=== PATIENT | male | born 1950 | race Caucasian/White ===

== ENCOUNTER 2020-06-08 06:30 | Day surgery (SDC) | payer MEDICARE ==
[~2020-06-08 06:30] MED LIST: Acetaminophen 325 MG Tab PO PRN; Cataract Ophth Solution EYERT ONE; Moxifloxacin 0.5% Ophth Soln 3 ML Bottle EYERT ONE; Ondansetron 4 MG/2 ML SDV IVPUSH PRN; Phenylephrine 10% Ophth Soln 5 ML Bot EYERT ONE; Phenylephrine 10% Ophth Soln 5 ML Bot EYERT PRN; Povidone-Iodine 5% Sterile Ophth Soln 30 ML Bottle EYERT ONE; Proparacaine 0.5% Ophth Soln 15 ML Bottle EYERT ONE; Sodium Chloride 0.9% 10 ML Syringe FLUSH PRN; Timolol Maleate 0.5% Ophth Soln 5 ML Bottle EYERT ONE; Tropicamide 1% Ophth Soln 15 ML Bottle EYERT ONE
[2020-06-08] MEDS ORDERED: Sodium Chloride 0.9% 10 ML Syringe IV ONE (06:31)
[2020-06-08] MEDS ORDERED: Dexamethasone 4 MG/ML SDV IV ONE (06:31)
[2020-06-08] MEDS ORDERED: Midazolam 1 MG/ML 2 ML SDV IV ONE (06:31)
[2020-06-08] MEDS ORDERED: Lidocaine 1% 30 ML SDV ONE (08:21)
[2020-06-08] MEDS ORDERED: Tetracaine HCl/PF 0.5% 4 ML Bottle EYERT ONE (08:21)
[2020-06-08] MEDS ORDERED: Povidone-Iodine 5% Sterile Ophth Soln 30 ML Bottle EYERT ONE (08:21)
[2020-06-08] MEDS ORDERED: Vancomycin 500 MG SDV EYERT ONE (08:22)
[2020-06-08] MEDS ORDERED: Diclofenac Sodium 0.1% Ophth Soln 5 ML Bottle EYERT ONE (08:22)
[2020-06-08] MEDS ORDERED: Chondroitin Sulfate/Hyaluronate Sodium Ophth Inj 0.75 ML Syringe EYERT ONE (08:22)
[2020-06-08] MEDS ORDERED: Apraclonidine 0.5% Ophth Soln 5 ML Bot EYERT ONE (08:22)
[2020-06-08] MEDS ORDERED: Balanced Salt Solution Ophth Irrig 500 ML Bottle IOCULAR ONE (08:22)
[2020-06-08] MEDS ORDERED: Phenylephrine 10% Ophth Soln 5 ML Bot EYERT ONE (08:22)
--- NOTE | 2020-06-08 12:43 | OR ---
DATE: 06/08/2020 PREOPERATIVE DIAGNOSIS: Visually significant mixed cataract, right eye. POSTOPERATIVE DIAGNOSIS: Visually significant mixed cataract, right eye. PROCEDURE: Extracapsular cataract extraction with intraocular lens implant, right eye. ANESTHESIA: Topical/local MAC. COMPLICATIONS: None. INDICATION: Mr. Parrish was seen in the clinic. He is unhappy with his vision noticing a progressive change. He has difficulty seeing words on the TV guide, difficulty driving, difficulty with both near and distance vision. Examination revealed visually significant mixed cataract. I explained options, offered cataract surgery, and I explained risks including, but not limited to infection, retinal detachment, loss of vision, need for additional surgery amongst others. We discussed the implant options. He has requested a monofocal implant. He understands that he will likely need glasses for best vision. He also has a history of amblyopia in the right eye and potentially isoametropic amblyopia. He understands that his visual potential may be limited. He voiced an understanding with respect to risks and limitations, and wished to proceed. OPERATIVE DESCRIPTION: After informed consent was obtained and the risks, benefits, and alternatives were explained, the patient was brought to the operative suite and topical anesthesia was administered. The patient was then prepped and draped in the sterile fashion and attention was placed on the right eye. A sterile lid speculum was placed into the right eye to allow operative exposure. A full-thickness paracentesis was made in the temporal portion of the operative eye. Preservative-free lidocaine 0.1 mL was injected into the anterior chamber followed by viscoelastic. A full-thickness corneal incision was then made into the anterior chamber. A bent needle cystotome was used to create a small cruz in the anterior capsule. The capsulorrhexis forceps was then used to create a 360-degree curvilinear capsulorrhexis. The nucleus was then removed using a phacoemulsification handpiece and the remaining cortical material was then removed with irrigation and aspiration handpiece. Following removal of the cortical material, the capsular bag was then inspected and noted to be free of any holes or tears. Viscoelastic was then injected into the capsular bag and the intraocular lens was inserted into the capsular bag. The viscoelastic material was then removed from both the anterior and posterior chambers and from behind the IOL. The lens and capsular bag were then reinspected. The IOL was well centered and the capsular bag intact. The wound and paracentesis sites were inspected and hydrated with balanced saline solution. Both were found to be self- sealing. The intraocular pressure was assessed digitally and found to be within normal range. A good red reflex was noted at the completion of the procedure. No complications occurred during the operation. At the completion of the procedure, Maxitrol, Voltaren, and Iopidine drops were placed into the operative eye. A sterile eye shield was placed over the operative eye and the patient was transported to the postoperative recovery area having tolerated the procedure well. Postoperative instructions were given along with a postoperative appointment. The patient was advised to call with any questions or concerns. [facility] /[id number]
[2020-06-08 14:02] VITALS: BP 150/83; PULSE 81
== END 2020-06-08 09:32 | disposition home or self-care (01) ==
LOC: DL.SDS 06:30
PROVIDERS: ATTEND Ophthalmology
DX: E11.36 Type 2 diabetes mellitus with diabetic cataract (principal); H26.8 Other specified cataract; I10 Essential (primary) hypertension; F32.9 Major depressive disorder, single episode, unspecified; F41.9 Anxiety disorder, unspecified; E78.5 Hyperlipidemia, unspecified; F17.210 Nicotine dependence, cigarettes, uncomplicated; Z88.8 Allergy status to other drugs, medicaments and biological substances; Z79.899 Other long term (current) drug therapy; Z86.73 Personal history of transient ischemic attack (TIA), and cerebral infarction without residual deficits
CPT/HCPCS: 66984; J1100; J2250; J3370; V2632; 00142

== ENCOUNTER 2020-06-15 09:08 | Day surgery (SDC) | payer MEDICARE ==
[2020-06-15] MEDS ORDERED: Midazolam 1 MG/ML 2 ML SDV IV ONE (09:09)
[2020-06-15] MEDS ORDERED: Dexamethasone 4 MG/ML SDV IV ONE (09:09)
[2020-06-15] MEDS ORDERED: Sodium Chloride 0.9% 10 ML Syringe IV ONE (09:09)
[2020-06-15] MEDS ORDERED: Acetaminophen 325 MG Tab PO PRN (09:15)
[2020-06-15] MEDS ORDERED: Phenylephrine 10% Ophth Soln 5 ML Bot EYELF ONE (09:15)
[2020-06-15] MEDS ORDERED: Tropicamide 1% Ophth Soln 15 ML Bottle EYELF ONE (09:15)
[2020-06-15] MEDS ORDERED: Sodium Chloride 0.9% 10 ML Syringe FLUSH PRN (09:15)
[2020-06-15] MEDS ORDERED: Proparacaine 0.5% Ophth Soln 15 ML Bottle EYELF ONE (09:15)
[2020-06-15] MEDS ORDERED: Moxifloxacin 0.5% Ophth Soln 3 ML Bottle EYELF ONE (09:15)
[2020-06-15] MEDS ORDERED: Povidone-Iodine 5% Sterile Ophth Soln 30 ML Bottle EYELF ONE ×2 (09:15→10:30)
[2020-06-15] MEDS ORDERED: Timolol Maleate 0.5% Ophth Soln 5 ML Bottle EYELF ONE (09:15)
[2020-06-15] MEDS ORDERED: Phenylephrine 10% Ophth Soln 5 ML Bot EYELF PRN (09:15)
[2020-06-15] MEDS ORDERED: Cataract Ophth Solution EYELF ONE (09:15)
[2020-06-15] MEDS ORDERED: Tetracaine HCl/PF 0.5% 4 ML Bottle EYELF ONE (10:29)
[2020-06-15] MEDS ORDERED: Lidocaine 1% 30 ML SDV ONE (10:29)
[2020-06-15] MEDS ORDERED: Dexamethasone/Neomycin/Polymyxin B Ophth Oint 3.5 GM Tube EYELF ONE (10:30)
[2020-06-15] MEDS ORDERED: Apraclonidine 0.5% Ophth Soln 5 ML Bot EYELF ONE (10:30)
[2020-06-15] MEDS ORDERED: Diclofenac Sodium 0.1% Ophth Soln 5 ML Bottle EYELF ONE (10:30)
[2020-06-15] MEDS ORDERED: Chondroitin Sulfate/Hyaluronate Sodium Ophth Inj 0.75 ML Syringe EYELF ONE (10:31)
[2020-06-15] MEDS ORDERED: Vancomycin 500 MG SDV EYELF ONE (10:31)
[2020-06-15] MEDS ORDERED: Balanced Salt Solution Ophth Irrig 500 ML Bottle IOCULAR ONE (10:31)
[2020-06-15 14:09] VITALS: BP 129/74; PULSE 70
--- NOTE | 2020-06-16 07:37 | OR ---
DATE: 06/15/2020 PREOPERATIVE DIAGNOSIS: Visually significant mixed cataract, left eye. POSTOPERATIVE DIAGNOSIS: Visually significant mixed cataract, left eye. PROCEDURE: Extracapsular cataract extraction with intraocular lens implant, left eye. ANESTHESIA: Topical/local MAC. COMPLICATIONS: None. INDICATION: Mr. Parrish was seen in the clinic. He has complained of a slow progressive decrease in vision. He has difficulty with both near and distance tasks. Examination revealed visually significant mixed cataract. 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 Dr. Reed was not able to improve his vision with a change in glasses. I explained options to Mr. Parrish. I have offered cataract surgery and I explained risks, including, but not limited to, infection, retinal detachment, loss of vision, need for additional surgery amongst others. We discussed implant options. He has requested a monofocal implant. He does have significant preexisting corneal astigmatism and he understands his visual potential will be limited without glasses. He also has a history of possible amblyopia and I explained that his ultimate visual potential may be limited, symptomatic. He voiced understanding and wished to proceed. OPERATIVE DESCRIPTION: After informed consent was obtained and the risks, benefits, and alternatives were explained, the patient was brought to the operative suite and topical anesthesia was administered. The patient was then prepped and draped in the sterile fashion and attention was placed on the left eye. A sterile lid speculum was placed into the left eye to allow operative exposure. A full-thickness paracentesis was made in the temporal portion of the operative eye. Preservative-free lidocaine 0.1 mL was injected into the anterior chamber followed by viscoelastic. A full-thickness corneal incision was then made into the anterior chamber. A bent needle cystotome was used to create a small cruz in the anterior capsule. The capsulorrhexis forceps was then used to create a 360-degree curvilinear capsulorrhexis. The nucleus was then removed using a phacoemulsification handpiece and the remaining cortical material was then removed with irrigation and aspiration handpiece. Following removal of the cortical material, the capsular bag was then inspected and noted to be free of any holes or tears. Viscoelastic was then injected into the capsular bag and the intraocular lens was inserted into the capsular bag. The viscoelastic material was then removed from both the anterior and posterior chambers and from behind the IOL. The lens and capsular bag were then reinspected. The IOL was well centered and the capsular bag intact. The wound and paracentesis sites were inspected and hydrated with balanced saline solution. Both were found to be self- sealing. The intraocular pressure was assessed digitally and found to be within normal range. A good red reflex was noted at the completion of the procedure. No complications occurred during the operation. At the completion of the procedure, Maxitrol, Voltaren, and Iopidine drops were placed into the operative eye. A sterile eye shield was placed over the operative eye and the patient was transported to the postoperative recovery area having tolerated the procedure well. Postoperative instructions were given along with a postoperative appointment. The patient was advised to call with any questions or concerns. [facility] /[id number]
== END 2020-06-15 11:39 | disposition home or self-care (01) ==
LOC: DL.SDS 09:08
PROVIDERS: ATTEND Ophthalmology
DX: H26.8 Other specified cataract (principal); I10 Essential (primary) hypertension; F32.9 Major depressive disorder, single episode, unspecified; F41.9 Anxiety disorder, unspecified; Z87.891 Personal history of nicotine dependence; J44.9 Chronic obstructive pulmonary disease, unspecified; Z79.899 Other long term (current) drug therapy
CPT/HCPCS: 66984; A9270; J1100; J2250; J3370; V2632; 00142

== ENCOUNTER 2020-11-10 22:31 | Emergency (ER) | payer MEDICARE, OTHER, SELFPAY ==
[2020-11-10 22:32] VITALS: BP 143/77; PULSE 95
--- NOTE | 2020-11-10 22:34 | EDM.PDOC ---
ED HPI GENERAL MEDICAL PROBLEM - General Chief Complaint: Laceration Stated Complaint: AMBULANCE Time Seen by Provider: 11/10/20 22:31 Source of Information: Reports: Patient, EMS History Limitations: Reports: No Limitations - History of Present Illness INITIAL COMMENTS - FREE TEXT/NARRATIVE: Patient is a unfortunate 70-year-old intoxicated male who presents emerged part today with complaint of head laceration. The patient reports that he drank 12- 15 beers today as he does every day however today he slipped and fell while he was walking onto his head and hit his head which caused a scalp laceration. The patient did not suffer a loss of consciousness he is alert and oriented x3 smells of EtOH and is obviously intoxicated this time but follows all commands and is cooperative and happy - Related Data Allergies Allergy/AdvReac Type Severity Reaction Status Date / Time No Known Allergies Allergy Verified 06/15/20 09:22 Home Meds: Home Meds Aspirin [Halfprin] 81 mg PO DAILY 06/06/20 [History] Citalopram [Citalopram HBr] 20 mg PO DAILY 06/06/20 [History] Ergocalciferol (Vitamin D2) [Vitamin D2] 50,000 unit PO .WEEKLY 06/06/20 [History] LORazepam [Lorazepam] 2 mg PO DAILY 06/06/20 [History] Meloxicam [Mobic] 7.5 mg PO DAILY PRN 06/06/20 [History] Terazosin [Hytrin] 2 mg PO BEDTIME 06/06/20 [History] amLODIPine [Norvasc] 5 mg PO DAILY 06/06/20 [History] traZODone 50 mg PO DAILY 06/06/20 [History] Past Medical History HEENT History: Reports: Cataract Cardiovascular History: Reports: High Cholesterol, Hypertension Respiratory History: Reports: None Gastrointestinal History: Reports: None Genitourinary History: Reports: BPH, Other (See Below) Other Genitourinary History: HX OF ED Musculoskeletal History: Reports: Fracture Other Musculoskeletal History: collar bone Neurological History: Reports: TIA Psychiatric History: Reports: Addiction, Anxiety, Depression, Other (See Below) Other Psychiatric History: HX OF ALCOHOL ABUSE Endocrine/Metabolic History: Reports: Diabetes, Type II, Vitamin D Deficiency Hematologic History: Reports: None Immunologic History: Reports: None Oncologic (Cancer) History: Reports: None Dermatologic History: Reports: None - Infectious Disease History Infectious Disease History: Reports: None - Past Surgical History Head Surgeries/Procedures: Reports: None HEENT Surgical History: Reports: None, Cataract Surgery Cardiovascular Surgical History: Reports: None Respiratory Surgical History: Reports: None GI Surgical History: Reports: None Male Surgical History: Reports: None Endocrine Surgical History: Reports: None Neurological Surgical History: Reports: None Social & Family History - Caffeine Use Caffeine Use: Reports: Coffee Caffeine Use Comment: 3 cups daily - Living Situation & Occupation Living situation: Reports: Single Occupation: Retired ED ROS GENERAL - Review of Systems Review Of Systems: See Below Constitutional: Denies: Fever, Chills Neurological: Reports: Headache ED EXAM, SKIN/RASH Exam: See Below Exam Limited By: No Limitations General Appearance: Alert, WD/WN, Mild Distress, Other (Intoxicated) Eye Exam: Bilateral Eye: PERRL, Other (Post cataract changes) Ears: Normal External Exam, Normal Canal, Hearing Grossly Normal, Normal TMs Throat/Mouth: Normal Inspection, Normal Lips, Normal Teeth, Normal Gums, Normal Oropharynx, Normal Voice, No Airway Compromise Neck: Normal Inspection, Supple, Non-Tender, Full Range of Motion Respiratory/Chest: No Respiratory Distress, Lungs Clear, Normal Breath Sounds, No Accessory Muscle Use, Chest Non-Tender Cardiovascular: Normal Peripheral Pulses, Regular Rate, Rhythm, No Edema, No Gallop, No JVD, No Murmur, No Rub GI/Abdominal: Normal Bowel Sounds, Soft, Non-Tender, No Organomegaly, No Distention, No Abnormal Bruit, No Mass Back Exam: Normal Inspection, Full Range of Motion, NT Extremities: Normal Inspection, Normal Range of Motion, Non-Tender, No Pedal Edema, Normal Capillary Refill Neurological: Alert, Oriented, CN II-XII Intact, Normal Cognition, Normal Gait, Normal Reflexes, No Motor/Sensory Deficits ED SKIN PROCEDURES - Additional/Other Procedure(s) Other (Free Text) Procedure(s): 4 cm linear scalp laceration, partial dermis thickness no active bleeding no foreign body noted, Betadine prep, local anesthesia lidocaine 1% 4 mL, wound was irrigated with NS and Betadine, wound was closed with #11 wilfred, patient tolerated procedure well, dressing by nursing Course - Vital Signs Text/Narrative:: CT head "impression: #1 no acute abnormality of the brain. #2 moderate right frontoparietal scalp hematoma/laceration near the vertex. Few foci of soft tissue emphysema near vertex. #3 mild mucoperiosteal thickening in the right and left frontal and right maxillary sinuses. Findings have increased in the left frontal sinus. #4 incidental/nonacute findings are listed in the report." Work today is reassuring, patient is intoxicated and fell head CT shows no acute findings, patient scalp laceration was repaired, patient will be discharged home follow-up outpatient with PCP or return to the emergency department for any worsening condition Last Recorded V/S: Last Vital Signs Temp 98.3 F 11/10/20 22:31 Pulse 95 11/10/20 22:31 Resp 16 11/10/20 22:31 BP 143/77 H 11/10/20 22:31 Pulse Ox 96 11/10/20 22:31 - Orders/Labs/Meds Meds: Medications Discontinued Medications Generic Name Dose Route Start Last Admin Trade Name Freq PRN Reason Stop Dose Admin Lidocaine HCl Confirm 11/10/20 22:53 Lidocaine 1% 30 Ml Sdv Administered 11/10/20 22:54 Dose 30 ml .ROUTE .STK-MED ONE Departure - Departure Time of Disposition: 23:41 Disposition: DC/Tfer W/I Hosp To Swing 61 Condition: Good Clinical Impression: ETOH abuse Scalp laceration Qualifiers: Encounter type: initial encounter Qualified Code(s): S01.01XA - Laceration without foreign body of scalp, initial encounter - Discharge Information *PRESCRIPTION DRUG MONITORING PROGRAM REVIEWED*: No *COPY OF PRESCRIPTION DRUG MONITORING REPORT IN PATIENT SALONI: No Instructions: Alcohol Use Disorder, Laceration Care, Adult Referrals: Daniela Apodaca MD [Physician] - Forms: ED Department Discharge Additional Instructions: Home, rest, keep wound clean and dry, clean wound daily apply Neosporin and bandage, no carrington or brushes, sutures out in 5 to 7 days, return to the emergency department for any worsening condition Sepsis Event Note (ED) - Focused Exam Vital Signs: Vital Signs Temp Pulse Resp BP Pulse Ox 11/10/20 22:31 98.3 F 95 16 143/77 H 96
[2020-11-10] MEDS ORDERED: Lidocaine 1% 30 ML SDV ONE (22:53)
--- NOTE | 2020-11-10 23:32 | CT ---
PROCEDURE INFORMATION: Exam: CT Head Without Contrast Exam date and time: 11/10/2020 10:51 PM Age: 70 years old Clinical indication: Injury or trauma; Fall; Blunt trauma (contusions or hematomas); Consciousness not specified; Additional info: Head injury TECHNIQUE: Imaging protocol: Computed tomography of the head without contrast. Sagittal and coronal reformatted images were created and reviewed. Radiation optimization: All CT scans at this facility use at least one of these dose optimization techniques: automated exposure control; mA and/or kV adjustment per patient size (includes targeted exams where dose is matched to clinical indication); or iterative reconstruction. COMPARISON: CT Head wo Cont 11/19/2019 1:25 PM FINDINGS: Brain: No acute intracranial hemorrhage. No acute infarct. No intra-axial or extra-axial masses. Zavala-white matter differentiation is preserved. No cerebral edema. No extra-axial fluid collections. No midline shift. No evidence for Chiari 1 malformation. Stable mild cerebral volume loss. Cerebral ventricles: No hydrocephalus. Paranasal sinuses: Mild mucoperiosteal thickening in the the right and left frontal and right maxillary sinuses. Findings have increased in the left frontal sinus. Other paranasal sinuses are clear. Mastoid air cells: Mastoid air cells are clear bilaterally. Orbital cavity: Globes, extraocular muscles, and optic nerves are intact bilaterally. No acute intraorbital abnormality. Vasculature: Atherosclerotic changes in the visualized arteries. Bones/joints: No acute fracture. Soft tissues: Moderate right frontoparietal scalp hematoma/laceration near the vertex. Few foci of soft tissue emphysema near the vertex. IMPRESSION: 1. No acute abnormality of the brain. 2. Moderate right frontoparietal scalp hematoma/laceration near the vertex. Few foci of soft tissue emphysema near the vertex. 3. Mild mucoperiosteal thickening in the the right and left frontal and right maxillary sinuses. Findings have increased in the left frontal sinus. 4. Incidental/nonacute findings are listed in the report.
== END 2020-11-11 00:15 | disposition swing bed (61) ==
LOC: DL.ED 22:31
DX: S01.01XA Laceration without foreign body of scalp, initial encounter (principal); F10.129 Alcohol abuse with intoxication, unspecified; I10 Essential (primary) hypertension; E78.00 Pure hypercholesterolemia, unspecified; E11.9 Type 2 diabetes mellitus without complications; Z79.82 Long term (current) use of aspirin; Z79.899 Other long term (current) drug therapy; W01.0XXA Fall on same level from slipping, tripping and stumbling without subsequent striking against object, initial encounter; Y90.0 Blood alcohol level of less than 20 mg/100 ml
CPT/HCPCS: 12002; 70450; 99282; 99284-25

== ENCOUNTER 2020-12-12 05:18 | Emergency (ER) | payer MEDICARE, OTHER ==
[2020-12-12] MEDS ORDERED: LORazepam 0.5 MG Tab PO ONE (05:33)
[2020-12-12 05:34] VITALS: BP 133/85; PULSE 115
--- NOTE | 2020-12-12 05:37 | EDM.PDOC ---
ED HPI GENERAL MEDICAL PROBLEM - General Stated Complaint: ANXEITY WITHDRAWL Time Seen by Provider: 12/12/20 05:29 Source of Information: Reports: Patient - History of Present Illness INITIAL COMMENTS - FREE TEXT/NARRATIVE: Pt is here for a refill of his lorazepam. He ran out about 5 days ago and reports he did not call his PCP at that time because he didn't start shaking until yesterday. He told the nurse that he also thought his shaking was from drinking his 12 beers a day, but he stopped that because his PCP told him to. He then told me that it was from the additional hydrocodone that he was given. Pt denies any chest pain, shortness of breath, cough, nausea, vomiting, diarrhea or constipation. He is otherwise feeling well, except for the shaking. Pt did bring in his lorazepam bottle that included the date last filled and dose. - Related Data Allergies Allergy/AdvReac Type Severity Reaction Status Date / Time No Known Allergies Allergy Verified 06/15/20 09:22 Home Meds: Home Meds Aspirin [Halfprin] 81 mg PO DAILY 06/06/20 [History] Citalopram [Citalopram HBr] 20 mg PO DAILY 06/06/20 [History] Ergocalciferol (Vitamin D2) [Vitamin D2] 50,000 unit PO .WEEKLY 06/06/20 [History] LORazepam [Lorazepam] 2 mg PO DAILY 06/06/20 [History] Meloxicam [Mobic] 7.5 mg PO DAILY PRN 06/06/20 [History] Terazosin [Hytrin] 2 mg PO BEDTIME 06/06/20 [History] amLODIPine [Norvasc] 5 mg PO DAILY 06/06/20 [History] traZODone 50 mg PO DAILY 06/06/20 [History] Past Medical History HEENT History: Reports: Cataract Cardiovascular History: Reports: High Cholesterol, Hypertension Respiratory History: Reports: None Gastrointestinal History: Reports: None Genitourinary History: Reports: BPH, Other (See Below) Other Genitourinary History: HX OF ED Musculoskeletal History: Reports: Fracture Other Musculoskeletal History: collar bone Neurological History: Reports: TIA Psychiatric History: Reports: Addiction, Anxiety, Depression, Other (See Below) Other Psychiatric History: HX OF ALCOHOL ABUSE Endocrine/Metabolic History: Reports: Diabetes, Type II, Vitamin D Deficiency Hematologic History: Reports: None Immunologic History: Reports: None Oncologic (Cancer) History: Reports: None Dermatologic History: Reports: None - Infectious Disease History Infectious Disease History: Reports: None - Past Surgical History Head Surgeries/Procedures: Reports: None HEENT Surgical History: Reports: None, Cataract Surgery Cardiovascular Surgical History: Reports: None Respiratory Surgical History: Reports: None GI Surgical History: Reports: None Male Surgical History: Reports: None Endocrine Surgical History: Reports: None Neurological Surgical History: Reports: None Social & Family History - Caffeine Use Caffeine Use: Reports: Coffee Caffeine Use Comment: 3 cups daily - Living Situation & Occupation Living situation: Reports: Single Occupation: Retired ED ROS GENERAL - Review of Systems Review Of Systems: Comprehensive ROS is negative, except as noted in HPI. ED EXAM, GENERAL - Physical Exam Exam: See Below Exam Limited By: No Limitations General Appearance: Alert, WD/WN, No Apparent Distress Eye Exam: Bilateral Eye: Normal Inspection Ears: Normal External Exam Nose: Normal Inspection Throat/Mouth: Normal Voice, No Airway Compromise Head: Atraumatic, Normocephalic Neck: Supple, Non-Tender Respiratory/Chest: No Respiratory Distress, Lungs Clear, Normal Breath Sounds, No Accessory Muscle Use, Chest Non-Tender Cardiovascular: Normal Peripheral Pulses, Regular Rate, Rhythm, No Murmur GI/Abdominal: Soft, Non-Tender (Male) Exam: Deferred Rectal (Males) Exam: Deferred Back Exam: Normal Inspection, Full Range of Motion Extremities: Normal Range of Motion, Normal Capillary Refill Neurological: Alert, Oriented, No Motor/Sensory Deficits, Other (asterixis of bilateral hands) Psychiatric: Normal Affect, Normal Mood Skin Exam: Warm, Dry, Intact, Other (tar stains on his right second and third digit) Course - Re-Assessments/Exams Free Text/Narrative Re-Assessment/Exam: Advised pt that the ER does not refill chronic medications and he should contact his primary care provider in 3 hours when the office opens. Pt asked for one dose in the ER to help get him through until that time. Given the degree of asterixis in his hands, will treat with one dose of ativan. 12/12/20 05:38 Departure - Departure Time of Disposition: 05:40 Disposition: Home, Self-Care 01 Condition: Fair Clinical Impression: Withdrawal complaint - Discharge Information *PRESCRIPTION DRUG MONITORING PROGRAM REVIEWED*: Not Applicable *COPY OF PRESCRIPTION DRUG MONITORING REPORT IN PATIENT SALONI: Not Applicable Instructions: Benzodiazepine Withdrawal Additional Instructions: contact your primary care provider for refills of your chronic medications.
== END 2020-12-12 05:46 | disposition home or self-care (01) ==
LOC: DL.ED 05:18
DX: F19.239 Other psychoactive substance dependence with withdrawal, unspecified (principal); I10 Essential (primary) hypertension; E11.9 Type 2 diabetes mellitus without complications; R27.8 Other lack of coordination; Z79.82 Long term (current) use of aspirin; Z79.899 Other long term (current) drug therapy
CPT/HCPCS: 99283; A9270

== ENCOUNTER 2020-12-19 11:48 | Emergency (ER) | payer MEDICARE, OTHER ==
[2020-12-19 12:35] VITALS: BP 153/91; PULSE 100
--- NOTE | 2020-12-19 16:06 | EDM.PDOC ---
ED HPI GENERAL MEDICAL PROBLEM - General Chief Complaint: Genitourinary Problem Stated Complaint: TROUBLE UNRINATING Time Seen by Provider: 12/19/20 15:58 Source of Information: Reports: Patient History Limitations: Reports: No Limitations - History of Present Illness INITIAL COMMENTS - FREE TEXT/NARRATIVE: 70 y/o M c/o dysuria x 3 weeks. Pt states he is up multiple times a night to urinate and has very little output. Pt has seen his PCP who put him on flomax but the pt reports very little relief. The pt is mostly wheelchair bound but walks with a walker at times. The pt reports some hx of a muscle weakness but cannot be more specific. He denies blood in urine, fever, cough, chills, drugs, etoh, cp, abd pn, neck pn, raymond. Duration: Day(s):, Getting Worse Groin Pain Score (Numeric/FACES): 4 - Related Data Allergies Allergy/AdvReac Type Severity Reaction Status Date / Time No Known Allergies Allergy Verified 12/19/20 12:18 Home Meds: Home Meds Aspirin [Halfprin] 81 mg PO DAILY 06/06/20 [History] Citalopram [Citalopram HBr] 20 mg PO DAILY 06/06/20 [History] Ergocalciferol (Vitamin D2) [Vitamin D2] 50,000 unit PO .WEEKLY 06/06/20 [History] LORazepam [Lorazepam] 2 mg PO DAILY 06/06/20 [History] Meloxicam [Mobic] 7.5 mg PO DAILY PRN 06/06/20 [History] Terazosin [Hytrin] 2 mg PO BEDTIME 06/06/20 [History] amLODIPine [Norvasc] 5 mg PO DAILY 06/06/20 [History] traZODone 50 mg PO DAILY 06/06/20 [History] Past Medical History HEENT History: Reports: Cataract Cardiovascular History: Reports: High Cholesterol, Hypertension Respiratory History: Reports: None Gastrointestinal History: Reports: None Genitourinary History: Reports: BPH, Other (See Below) Other Genitourinary History: HX OF ED Musculoskeletal History: Reports: Fracture Other Musculoskeletal History: collar bone Neurological History: Reports: TIA Psychiatric History: Reports: Addiction, Anxiety, Depression, Other (See Below) Other Psychiatric History: HX OF ALCOHOL ABUSE Endocrine/Metabolic History: Reports: Diabetes, Type II, Vitamin D Deficiency Hematologic History: Reports: None Immunologic History: Reports: None Oncologic (Cancer) History: Reports: None Dermatologic History: Reports: None - Infectious Disease History Infectious Disease History: Reports: None - Past Surgical History Head Surgeries/Procedures: Reports: None HEENT Surgical History: Reports: None, Cataract Surgery Cardiovascular Surgical History: Reports: None Respiratory Surgical History: Reports: None GI Surgical History: Reports: None Male Surgical History: Reports: None Endocrine Surgical History: Reports: None Neurological Surgical History: Reports: None Social & Family History - Family History Family Medical History: No Pertinent Family History - Tobacco Use Tobacco Use Status *Q: Heavy Tobacco User Years of Tobacco use: 52 Packs/Tins Daily: 1.5 - Caffeine Use Caffeine Use: Reports: Coffee Caffeine Use Comment: 3 cups daily - Recreational Drug Use Recreational Drug Use: No - Living Situation & Occupation Living situation: Reports: Single Occupation: Retired ED ROS GENERAL - Review of Systems Review Of Systems: Comprehensive ROS is negative, except as noted in HPI. ED EXAM, RENAL/ - Physical Exam Exam: See Below Exam Limited By: No Limitations General Appearance: Alert Eye Exam: Bilateral Eye: PERRL Cardiovascular: Normal Peripheral Pulses, Regular Rate, Rhythm, No Edema, No Gallop, No JVD, No Murmur, No Rub GI/Abdominal: Normal Bowel Sounds, Soft, Non-Tender (Male) Exam: Deferred Rectal (Males) Exam: Deferred Back Exam: Normal Inspection, Full Range of Motion Course - Vital Signs Last Recorded V/S: Last Vital Signs Temp 97.4 F 12/19/20 12:19 Pulse 100 12/19/20 12:19 Resp 18 12/19/20 12:19 BP 153/91 H 12/19/20 12:19 Pulse Ox 95 12/19/20 12:19 - Orders/Labs/Meds Orders: Active Orders 24 hr Category Date Time Status Bladder Scan [RC] ASDIRECTED Care 12/19/20 12:48 Active Insert Jones Catheter [Insert Urinary Catheter] [OM.PC] Care 12/19/20 16:00 Ordered Q24H Urinary Catheter Assessment [RC] ASDIRECTED Care 12/19/20 15:57 Active Labs: Laboratory Tests 12/19/20 Range/Units 16:33 Urine Color Yellow (YELLOW) Urine Appearance Slightly cloudy (CLEAR) Urine pH 6.0 (5.0-9.0) Ur Specific [place] >= 1.030 (1.005-1.030) Urine Protein Negative (NEGATIVE) Urine Glucose (UA) 250 H (NEGATIVE) Urine Ketones 40 H (NEGATIVE) Urine Occult Blood Negative (NEGATIVE) Urine Nitrite Negative (NEGATIVE) Urine Bilirubin Negative (NEGATIVE) Urine Urobilinogen 0.2 (0.2-1.0) mg/dL Ur Leukocyte Esterase Negative (NEGATIVE) - Re-Assessments/Exams Free Text/Narrative Re-Assessment/Exam: 12/19/20 17:04 The pt feels a great deal of relief with the jones placement. I will instruct him to follow up with his [facility] facility this week about the elevated glucose and ketones in his urine. Departure - Departure Time of Disposition: 17:05 Disposition: Home, Self-Care 01 Condition: Good Clinical Impression: Dysuria - Discharge Information *PRESCRIPTION DRUG MONITORING PROGRAM REVIEWED*: Not Applicable *COPY OF PRESCRIPTION DRUG MONITORING REPORT IN PATIENT SALONI: Not Applicable Instructions: Indwelling Urinary Catheter Care, Adult, [id number] Forms: ED Department Discharge Additional Instructions: Your urinalysis show elevated glucose and ketones in your urine. These can be signs of diabetes. Follow up this week with your primary care facility regarding the glucose and ketones in your urine. If any new symptoms or concerns develop contact your primary care facility or return to the ER. Sepsis Event Note (ED) - Focused Exam Vital Signs: Vital Signs Temp Pulse Resp BP Pulse Ox 12/19/20 12:19 97.4 F 100 18 153/91 H 95 - My Orders Last 24 Hours: My Active Orders 12/19/20 15:57 Urinary Catheter Assessment [RC] ASDIRECTED 12/19/20 16:00 Insert Jones Catheter [Insert Urinary Catheter] [OM.PC] Q24H - Assessment/Plan Last 24 Hours: My Active Orders 12/19/20 15:57 Urinary Catheter Assessment [RC] ASDIRECTED 12/19/20 16:00 Insert Jones Catheter [Insert Urinary Catheter] [OM.PC] Q24H
== END 2020-12-19 17:39 | disposition home or self-care (01) ==
LOC: DL.ED 11:48
DX: R30.0 Dysuria (principal); I10 Essential (primary) hypertension; E11.9 Type 2 diabetes mellitus without complications; Z72.0 Tobacco use; Z79.82 Long term (current) use of aspirin; Z79.899 Other long term (current) drug therapy
CPT/HCPCS: 51702; 81003; 99283-25

== ENCOUNTER 2020-12-20 08:29 | Emergency (ER) | payer MEDICARE ==
--- NOTE | 2020-12-20 09:01 | EDM.PDOC ---
ED HPI GENERAL MEDICAL PROBLEM - General Chief Complaint: Genitourinary Problem Stated Complaint: [id number] NEEDS CATHITER REMOVED Time Seen by Provider: 12/20/20 08:57 Source of Information: Reports: Patient History Limitations: Reports: No Limitations - History of Present Illness INITIAL COMMENTS - FREE TEXT/NARRATIVE: 70 y/o M in today to have his jones cath removed. Tjjohnathon pt was seen here yesterday by me adn requested a jones because he was having difficulty emptying his bladder. After a night with the jones the pt reports it is too difficult to manage the urine bag and would like it removed. Denies fever, cough, chills, abd pn, back pn, drugs, etoh. - Related Data Allergies Allergy/AdvReac Type Severity Reaction Status Date / Time No Known Allergies Allergy Verified 12/20/20 08:39 Home Meds: Home Meds Aspirin [Halfprin] 81 mg PO DAILY 06/06/20 [History] Citalopram [Citalopram HBr] 20 mg PO DAILY 06/06/20 [History] Ergocalciferol (Vitamin D2) [Vitamin D2] 50,000 unit PO .WEEKLY 06/06/20 [History] LORazepam [Lorazepam] 2 mg PO DAILY 06/06/20 [History] Meloxicam [Mobic] 7.5 mg PO DAILY PRN 06/06/20 [History] Terazosin [Hytrin] 2 mg PO BEDTIME 06/06/20 [History] amLODIPine [Norvasc] 5 mg PO DAILY 06/06/20 [History] traZODone 50 mg PO DAILY 06/06/20 [History] Past Medical History HEENT History: Reports: Cataract Cardiovascular History: Reports: High Cholesterol, Hypertension Respiratory History: Reports: None Gastrointestinal History: Reports: None Genitourinary History: Reports: BPH, Other (See Below) Other Genitourinary History: HX OF ED Musculoskeletal History: Reports: Fracture Other Musculoskeletal History: collar bone Neurological History: Reports: TIA Psychiatric History: Reports: Addiction, Anxiety, Depression, Other (See Below) Other Psychiatric History: HX OF ALCOHOL ABUSE Endocrine/Metabolic History: Reports: Diabetes, Type II, Vitamin D Deficiency Hematologic History: Reports: None Immunologic History: Reports: None Oncologic (Cancer) History: Reports: None Dermatologic History: Reports: None - Infectious Disease History Infectious Disease History: Reports: None - Past Surgical History Head Surgeries/Procedures: Reports: None HEENT Surgical History: Reports: None, Cataract Surgery Cardiovascular Surgical History: Reports: None Respiratory Surgical History: Reports: None GI Surgical History: Reports: None Male Surgical History: Reports: None Endocrine Surgical History: Reports: None Neurological Surgical History: Reports: None Social & Family History - Family History Family Medical History: No Pertinent Family History - Tobacco Use Tobacco Use Status *Q: Heavy Tobacco User Years of Tobacco use: 52 Packs/Tins Daily: 1.5 - Caffeine Use Caffeine Use: Reports: Coffee Caffeine Use Comment: 3 cups daily - Recreational Drug Use Recreational Drug Use: No - Living Situation & Occupation Living situation: Reports: Single Occupation: Retired ED ROS GENERAL - Review of Systems Review Of Systems: Comprehensive ROS is negative, except as noted in HPI. ED EXAM, RENAL/ - Physical Exam Exam: See Below Exam Limited By: No Limitations General Appearance: Alert, No Apparent Distress Respiratory/Chest: No Respiratory Distress, Lungs Clear Cardiovascular: Normal Peripheral Pulses, Regular Rate, Rhythm, No JVD (Male) Exam: Other (jones catheter present in penis. Tubing has what appears to be some blood tinged urine likely from the trauma from insertion as well as friction overnight.) Course - Vital Signs Last Recorded V/S: Last Vital Signs Temp 98.2 F 12/20/20 08:40 Pulse 110 H 12/20/20 08:40 Resp 20 12/20/20 08:40 BP 166/87 H 12/20/20 08:40 Pulse Ox 96 12/20/20 08:40 - Re-Assessments/Exams Free Text/Narrative Re-Assessment/Exam: 12/20/20 09:03 The pts jones was removed without complications. I will increase his flomax to 0.8 mg to help with his dysuria. 12/20/20 09:19 After talking to ther pt about his symptoms of urinary frequency and difficulty voiding I will cover the pt with cipro to cover for prostatitis and any urinary tract infection the may have been seeded by the jones insertion or overnight contamination. The pt in unkempt and in a wheelchair most of the time which increases his risk for infection. Departure - Departure Time of Disposition: 09:05 Disposition: Home, Self-Care 01 Condition: Good Clinical Impression: Dysuria - Discharge Information *PRESCRIPTION DRUG MONITORING PROGRAM REVIEWED*: Not Applicable *COPY OF PRESCRIPTION DRUG MONITORING REPORT IN PATIENT SALONI: Not Applicable Instructions: Dysuria Forms: ED Department Discharge Additional Instructions: RX: Cipro Increase your flomax to 0.8mg once a day. Follow up with your primary care facility in 2 weeks in symptoms do not improve. If any new symptoms or concerns develop contact your primary care facility or return to the ER. Sepsis Event Note (ED) - Focused Exam Vital Signs: Vital Signs Temp Pulse Resp BP Pulse Ox 12/20/20 08:40 98.2 F 110 H 20 166/87 H 96
[2020-12-20 10:36] VITALS: BP 166/87; PULSE 110
== END 2020-12-20 09:34 | disposition home or self-care (01) ==
LOC: DL.ED 08:29
DX: R30.0 Dysuria (principal); I10 Essential (primary) hypertension; E11.9 Type 2 diabetes mellitus without complications; Z72.0 Tobacco use; Z79.82 Long term (current) use of aspirin; Z79.899 Other long term (current) drug therapy
CPT/HCPCS: 99283

== ENCOUNTER 2022-12-27 13:34 | Emergency (ER) | payer MEDICARE, OTHER ==
[2022-12-27 14:00] LABS: AMPHETAMINES,URINE NEGATIVE (NEGATIVE); BARBITURATES,URINE NEGATIVE (NEGATIVE); BENZODIAZEPINE,URINE NEGATIVE (NEGATIVE); MDMA (ECSTASY), URINE NEGATIVE (NEGATIVE); METHADONE,URINE NEGATIVE (NEGATIVE); METHAMPHETAMINES,URINE NEGATIVE (NEGATIVE); OPIATES,URINE NEGATIVE (NEGATIVE); OXYCODONE,URINE NEGATIVE (NEGATIVE); PHENCYCLIDINE,URINE NEGATIVE (NEGATIVE); TCA,URINE NEGATIVE (NEGATIVE)
[2022-12-27 14:01] LABS: APPEARANCE,URINE CLEAR (CLEAR); BILIRUBIN,URINE NEGATIVE (NEGATIVE); COLOR,URINE YELLOW (YELLOW); GLUCOSE,URINE 250 (NEGATIVE); KETONES,URINE NEGATIVE (NEGATIVE); LEUKOCYTE ESTERASE,URINE NEGATIVE (NEGATIVE); NITRITE,URINE NEGATIVE (NEGATIVE); OCCULT BLOOD,URINE NEGATIVE (NEGATIVE); PROTEIN,URINE NEGATIVE (NEGATIVE); UROBILINOGEN,URINE 0.2 mg/dL (0.2-1.0)
[2022-12-27 14:15] VITALS: BP 166/83; PULSE 97
[2022-12-27 14:34] LABS: BASOPHILS PERCENT AUTO 0.8 % (0.0-1.0); EOSINOPHILS PERCENT AUTO 2.8 % (1.0-3.0); HEMATOCRIT 43.4 % (40.0-54.0); HEMOGLOBIN 15.3 g/dL (14.0-18.0); LYMPHOCYTES PERCENT AUTO 23.5 % (20.5-50.1); MEAN CORPUSCULAR HEMOGLOBIN 31.1 pg (27.0-34.0); MEAN CORPUSCULAR HGB CONC 35.3 g/dL (33.0-35.0); MEAN CORPUSCULAR VOLUME 88.2 fL (80-100); MONOCYTES PERCENT AUTO 8.5 % (2-8); NEUTROPHILS PERCENT AUTO 64.4 % (42.2-75.2); PLATELET COUNT,PLT 265 10^3/uL (150-450); RED BLOOD CELL COUNT 4.92 10^6/uL (4.6-6.2); WHITE BLOOD CELL COUNT,WBC 6.4 10^3/uL (5.0-10.0)
[2022-12-27 14:53] LABS: ALANINE AMINOTRANSFERASE,ALT 23 U/L (16-63); ALBUMIN 3.5 g/dL (3.4-5.0); ALKALINE PHOSPHATASE 128 U/L (46-116); ANION GAP 12.2 mEq/L (7-13); ASPARTATE AMNIOTRANSFERASE,AST 13 U/L (15-37); BILIRUBIN TOTAL 0.3 mg/dL (0.2-1.0); BLOOD UREA NITROGEN,BUN 9 mg/dL (7-18); BUN/CREATININE RATIO 10.5 (No establ ref range); CALCIUM 8.5 mg/dL (8.5-10.1); CARBON DIOXIDE,CO2 29 mmol/L (21-32); CHLORIDE,CL 98 mmol/L (98-107); CREATININE 0.86 mg/dL (0.70-1.30); EST CRCL DRUG DOSING (CG) 71.09 mL/min; MAGNESIUM 1.9 mg/dL (1.8-2.4); POTASSIUM,K 4.2 mmol/L (3.5-5.1); PROTEIN TOTAL,TP 6.9 g/dL (6.4-8.2); SODIUM,NA 135 mmol/L (136-145)
[2022-12-27 15:09] LABS: ESTIMATED GFR 93 mL/min (>=60); ETHANOL BLOOD MEDICAL < 3 mg/dL (0)
[2022-12-27 15:10] LABS: GLUCOSE RANDOM 156 mg/dL (70-99)
== END 2022-12-27 15:44 | disposition home or self-care (01) ==
LOC: DL.ED 13:34
DX: R47.1 Dysarthria and anarthria (principal); R48.2 Apraxia; I10 Essential (primary) hypertension; E11.9 Type 2 diabetes mellitus without complications; F17.210 Nicotine dependence, cigarettes, uncomplicated; Z79.899 Other long term (current) drug therapy
CPT/HCPCS: 36415; 70450; 80053; 80305-QW; 80307; 81003; 83735; 85025; 99284; 99285

== ENCOUNTER 2023-01-28 09:38 | Emergency (ER) | payer MEDICARE ==
[2023-01-28 10:04] LABS: BASOPHILS PERCENT AUTO 0.5 % (0.0-1.0); EOSINOPHILS PERCENT AUTO 1.4 % (1.0-3.0); HEMATOCRIT 45.7 % (40.0-54.0); HEMOGLOBIN 16.1 g/dL (14.0-18.0); LYMPHOCYTES PERCENT AUTO 16.6 % (20.5-50.1); MEAN CORPUSCULAR HEMOGLOBIN 30.7 pg (27.0-34.0); MEAN CORPUSCULAR HGB CONC 35.2 g/dL (33.0-35.0); MONOCYTES PERCENT AUTO 10.7 % (2-8); NEUTROPHILS PERCENT AUTO 70.8 % (42.2-75.2); PLATELET COUNT,PLT 250 10^3/uL (150-450); RED BLOOD CELL COUNT 5.25 10^6/uL (4.6-6.2); WHITE BLOOD CELL COUNT,WBC 5.8 10^3/uL (5.0-10.0)
[2023-01-28 10:13] LABS: A/G RATIO 1.1; ALBUMIN 3.9 g/dL (3.4-5.0); BILIRUBIN TOTAL 0.8 mg/dL (0.2-1.0); BUN/CREATININE RATIO 5.6 (No establ ref range); CREATININE 0.89 mg/dL (0.70-1.30); EST CRCL DRUG DOSING (CG) 71.18 mL/min; PROTEIN TOTAL,TP 7.6 g/dL (6.4-8.2)
[2023-01-28 11:12] LABS: APPEARANCE,URINE CLEAR (CLEAR); BILIRUBIN,URINE NEGATIVE (NEGATIVE); COLOR,URINE YELLOW (YELLOW); GLUCOSE,URINE 100 (NEGATIVE); KETONES,URINE 80 (NEGATIVE); LEUKOCYTE ESTERASE,URINE NEGATIVE (NEGATIVE); NITRITE,URINE NEGATIVE (NEGATIVE); OCCULT BLOOD,URINE NEGATIVE (NEGATIVE); PROTEIN,URINE NEGATIVE (NEGATIVE); UROBILINOGEN,URINE 0.2 mg/dL (0.2-1.0)
[2023-01-28] MEDS ORDERED: Bisacodyl 5 MG Tab PO ONE (11:23)
[2023-01-28] MEDS ORDERED: Lactulose Soln 10 GM/15 ML 30 ML UD Cup PO ONE (11:24)
[2023-01-28 12:16] VITALS: BP 142/87; PULSE 102
== END 2023-01-28 14:13 | disposition home or self-care (01) ==
LOC: DL.ED 09:38
DX: M62.81 Muscle weakness (generalized) (principal); K59.00 Constipation, unspecified; F17.210 Nicotine dependence, cigarettes, uncomplicated; E11.9 Type 2 diabetes mellitus without complications; I10 Essential (primary) hypertension; Z86.73 Personal history of transient ischemic attack (TIA), and cerebral infarction without residual deficits; Z79.899 Other long term (current) drug therapy
CPT/HCPCS: 36415; 74018; 80053; 81003; 83735; 85025; 99284; A9270-GY

== ENCOUNTER 2023-02-03 13:20 | Emergency (ER) | payer MEDICARE ==
[2023-02-03] MEDS ORDERED: Sodium Chloride 0.9% 10 ML Syringe FLUSH PRN (13:36)
[2023-02-03] MEDS ORDERED: Iopamidol 755 Mg/ML 100 ML Bottle IVPUSH ONE (13:39)
[2023-02-03 13:47] VITALS: BP 157/105; PULSE 102
[2023-02-03 14:02] LABS: BASOPHILS PERCENT AUTO 0.3 % (0.0-1.0); EOSINOPHILS PERCENT AUTO 0.2 % (1.0-3.0); HEMATOCRIT 45.1 % (40.0-54.0); HEMOGLOBIN 16.1 g/dL (14.0-18.0); LYMPHOCYTES PERCENT AUTO 11.2 % (20.5-50.1); MEAN CORPUSCULAR HEMOGLOBIN 30.6 pg (27.0-34.0); MEAN CORPUSCULAR HGB CONC 35.7 g/dL (33.0-35.0); MEAN CORPUSCULAR VOLUME 85.7 fL (80-100); MONOCYTES PERCENT AUTO 8.7 % (2-8); NEUTROPHILS PERCENT AUTO 79.6 % (42.2-75.2); PLATELET COUNT,PLT 265 10^3/uL (150-450); RED BLOOD CELL COUNT 5.26 10^6/uL (4.6-6.2); WHITE BLOOD CELL COUNT,WBC 10.2 10^3/uL (5.0-10.0)
[2023-02-03 14:21] LABS: A/G RATIO 0.9; ALANINE AMINOTRANSFERASE,ALT 19 U/L (16-63); ALBUMIN 3.6 g/dL (3.4-5.0); ALKALINE PHOSPHATASE 131 U/L (46-116); ANION GAP 10.1 mEq/L (7-13); ASPARTATE AMNIOTRANSFERASE,AST 32 U/L (15-37); BILIRUBIN TOTAL 0.7 mg/dL (0.2-1.0); BLOOD UREA NITROGEN,BUN 9 mg/dL (7-18); BUN/CREATININE RATIO 10.7 (No establ ref range); CALCIUM 9.3 mg/dL (8.5-10.1); CARBON DIOXIDE,CO2 29 mmol/L (21-32); CHLORIDE,CL 97 mmol/L (98-107); CREATININE 0.84 mg/dL (0.70-1.30); EST CRCL DRUG DOSING (CG) 75.41 mL/min; GLUCOSE RANDOM 124 mg/dL (70-99); POTASSIUM,K 4.1 mmol/L (3.5-5.1); PROTEIN TOTAL,TP 7.4 g/dL (6.4-8.2); PROTHROMBIN TIME 10.3 SEC (9.0-12.0); PTT,PARTIAL THROMBOPLSTIN TIME 24.5 SEC (22.0-34.0); SODIUM,NA 132 mmol/L (136-145)
[2023-02-03 14:24] LABS: LACTIC ACID 0.9 mmol/L (0.4-2.0)
[2023-02-03 14:51] LABS: ESTIMATED GFR 93 mL/min (>=60); ETHANOL BLOOD MEDICAL < 3 mg/dL (0)
[2023-02-03 16:17] LABS: APPEARANCE,URINE CLEAR (CLEAR); BILIRUBIN,URINE SMALL (NEGATIVE); COLOR,URINE YELLOW (YELLOW); GLUCOSE,URINE NEGATIVE (NEGATIVE); KETONES,URINE 80 (NEGATIVE); LEUKOCYTE ESTERASE,URINE NEGATIVE (NEGATIVE); NITRITE,URINE NEGATIVE (NEGATIVE); OCCULT BLOOD,URINE SMALL (NEGATIVE); PROTEIN,URINE NEGATIVE (NEGATIVE)
[2023-02-03 16:30] LABS: BACTERIA,URINE FEW /HPF (0-FEW/HPF); EPITHELIAL CELLS,URINE FEW /HPF (NOT SEEN); HYALINE CASTS,URINE FEW; MUCUS,URINE MODERATE /LPF (NOT SEEN); RBC,URINE 0-5 /HPF (0-5); WBC,URINE 0-5 /HPF (0-5/HPF)
== END 2023-02-03 18:33 | disposition home or self-care (01) ==
LOC: DL.ED 13:20
DX: I69.322 Dysarthria following cerebral infarction (principal); I10 Essential (primary) hypertension; E78.00 Pure hypercholesterolemia, unspecified; E11.9 Type 2 diabetes mellitus without complications; F17.210 Nicotine dependence, cigarettes, uncomplicated; Z79.899 Other long term (current) drug therapy; W05.0XXA Fall from non-moving wheelchair, initial encounter
CPT/HCPCS: 36415; 70450; 70496; 70498; 80053; 80307; 81001; 82947; 83605; 84145; 85025; 85610; 85730; 93005; 93010; 99284; 99285; J3490; Q9967